=== PATIENT | female | born 1950 | race Caucasian/White ===

== ENCOUNTER → 2016-08-12 | Outpatient (CLI) | payer OTHER ==
[~2016-08-12] MED LIST: [UNRECOGNIZED DRUG - REMARK]
--- NOTE | ~2016-08-12 | MY29 ---
[facility] A Service of [facility] RADIOLOGY TEXT RESULTS PATIENT: PAULA WILBURN LOCATION: [facility] : 52 UNIT #: [id number] AGE: [address]: RADHA CASTANON SEX: F ORDER DR: [id number] [facility] [address] [place], [place] [address] [id number] O MR#: [id number] Acc #: [id number] NAME: PAULA WILBURN : 1950 SEX: F STUDY DATE/TIME: 08/12/2016 10:42 UNIT: [facility] ROOM: STUDY DESCRIPTION: MY HATTIE SCREENING W/ CAD BILAT Attending Physician: Radha Castanon M.D. Referring Physician: Radha Castanon M.D. Primary Care Physician: Radha Castanon M.D. MEDICAL IMAGING REPORT This report is preliminary unless electronic signature is present EXAM Digital screening mammogram 08/12/2016. HISTORY A 66-year-old woman no risk elevation. Annual screening. COMPARISON STUDIES 07/28/2006 [facility] FINDINGS Digital imaging of each breast was completed utilizing a two-view examination of each breast in craniocaudal and mediolateral-oblique projections. Review and interpretation of digital mammograms include a second review in conjunction with FDA-approved CAD device. There is a normal parenchymal presentation bilaterally consistent with the patient's age. There are no breast masses imaged and no parenchymal asymmetry is visualized. There are no suspicious microcalcifications and I see no focal architectural disturbance. IMPRESSION Negative screening digital mammogram. One-year followup recommended. Patients over the age of 40 are entered into a reminder system with target due date for the next mammogram. A result letter will also be sent to the patient. BIRADS: 1 Negative Dictated by... Prabhjot Cortez M.D. [facility] A Service of [facility] RADIOLOGY TEXT RESULTS PATIENT: PAULA WILBURN LOCATION: [facility] : 51 UNIT #: [id number] AGE: [address]: RADHA CASTANON SEX: F ORDER DR: THIS IS AN ELECTRONICALLY VERIFIED REPORT Prabhjot Cortez M.D. at 08/12/2016 2:46 PM Matthew TD: 08/12/2016 12:59 JOB #: [id number] MEDICAL IMAGING REPORT Page 1 of 1 COPY
--- NOTE | ~2016-08-12 | BD1 ---
[facility] A Service of [facility] RADIOLOGY TEXT RESULTS PATIENT: PAULA WILBURN LOCATION: [facility] : 52 UNIT #: [id number] AGE: [address]: RADHA CASTANON SEX: F ORDER DR: [id number] [facility] [address] [place], [place] [address] [id number] O MR#: [id number] Acc #: [id number] NAME: PAULA WILBURN : 1950 SEX: F STUDY DATE/TIME: 08/12/2016 11:02 UNIT: [facility] ROOM: STUDY DESCRIPTION: BD Dexa Bone Dens 1+ Site Attending Physician: Radha Castnaon M.D. Referring Physician: Radha Castanon M.D. Primary Care Physician: Radha Castanon M.D. MEDICAL IMAGING REPORT This report is preliminary unless electronic signature is present EXAM DXA scan, 08/12/2016 HISTORY Status post menopause with no hormone replacement therapy. Osteopenia. Arthritis. Family history of osteoporosis in mother. FINDINGS Bone mineral density in the lumbar spine from L1-L4 is 0.758 g/cm2 which is 2.6 standard deviations below the mean when compared to the young adult reference population which is characteristic of osteoporosis. This is 0.8 standard deviations below the mean when compared to the age-matched population. Bone mineral density in the left femoral neck was 0.688 g/cm2 which is 1.5 standard deviations below the mean when compared to the young adult reference population which is characteristic of osteopenia. This is 0.1 standard deviations above the mean when compared to the age-matched population. IMPRESSION Bone mineral density in the lumbar spine characteristic of osteoporosis and within the left hip characteristic of osteopenia. Dictated by... Esteban Chowdhury M.D. THIS IS AN ELECTRONICALLY VERIFIED REPORT Esteban Chowdhury M.D. at 08/12/2016 1:45 PM ORION/benjamín TD: 08/12/2016 12:12 JOB #: [id number] [facility] A Service of [facility] RADIOLOGY TEXT RESULTS PATIENT: PAULA WILBURN LOCATION: [facility] #: [id number] : 52 UNIT #: [id number] AGE: [address]: RADHA CASTANON SEX: F ORDER DR: MEDICAL IMAGING REPORT Page 1 of 1 COPY
== END | disposition home or self-care (01) ==
LOC: CWCC 10:15
DX: Z13.820 Encounter for screening for osteoporosis (principal); Z12.31 Encounter for screening mammogram for malignant neoplasm of breast; N95.9 Unspecified menopausal and perimenopausal disorder; M81.0 Age-related osteoporosis without current pathological fracture; M85.88 Other specified disorders of bone density and structure, other site; Z88.2 Allergy status to sulfonamides
CPT/HCPCS: 77080; G0202